=== PATIENT | male | born 1950 | race Caucasian/White ===

== ENCOUNTER 2017-02-09 08:19 | Inpatient (IN) ==
[2017-02-03 18:01] LABS: Basophils # (Auto) 0.1 K/mcL (0.0-0.3); Basophils % (Auto) 0.9 % (0.0-2.0); Eosinophils # (Auto) 0.5 K/mcL (0.0-0.7); Eosinophils % (Auto) 6.6 % (0.0-7.0); Granulocytes % (Auto) 41.4 % (38.0-78.0); Lymphocytes # (Auto) 3.2 K/mcL (1.5-4.8); Lymphocytes % (Auto) 40.1 % (15.5-49.0); Mean Cell Volume 93.9 fL (80.0-100.0); Mean Corpuscular HGB Conc 34.2 g/dL (31.0-36.0); Mean Corpuscular Hemoglobin 32.1 pg (26.0-34.0); Monocytes # (Auto) 0.9 K/mcL (0.1-0.9); Platelet Count 334 K/mcL (140-440); RBC 4.64 M/mcL (4.50-5.90); Red Cell Distribution Width 13.9 % (11.5-14.5)
[2017-02-03 18:16] LABS: Blood Urea Nitrogen 21 mg/dl (8-23)
[2017-02-03 19:02] LABS: Appearance,Urine CLEAR; Bilirubin,Urine NEG (NEG); Color,Urine YELLOW; Glucose,Urine (UA) NEGATIVE (NEG); Leukocyte Esterase,Urine NEG /uL (NEG); Nitrate,Urine NEG (NEG); Protein,Urine NEG (NEG); Urine Blood NEG mg/dL (<0.03); Urobilinogen,Urine NEG (NEG)
[~2017-02-09 08:19] MED LIST: ACETAMINOPHEN 500 MG TABLET PO SCH; CELECOXIB 200 MG CAPSULE PO SCH; PREGABALIN 75 MG CAPSULE PO SCH; ceFAZolin 1 GM VIAL IV SCH; oxyCODONE 10 MG TAB.ER.12H PO SCH
[2017-02-09] MEDS ORDERED: GENTAMICIN SULFATE 800 MG/20 ML VIAL IR ONE (10:29)
[2017-02-09] MEDS ORDERED: ONDANSETRON 4 MG/2 ML VIAL IV ONE (11:10)
[2017-02-09] MEDS ORDERED: PROPOFOL 200 MG/20 ML VIAL IV ONE (11:10)
[2017-02-09] MEDS ORDERED: ePHEDrine 50 MG/ML AMPUL IV ONE (11:10)
[2017-02-09] MEDS ORDERED: MIDAZOLAM 5 MG/5 ML VIAL IV ONE (11:10)
[2017-02-09] MEDS ORDERED: DEXAMETHASONE 10 MG/ML VIAL IV ONE (11:10)
[2017-02-09] MEDS ORDERED: SUCCINYLCHOLINE 20 MG/ML ML IV ONE (11:10)
[2017-02-09] MEDS ORDERED: PHENYLEPHRINE 10 MG/ML VIAL IV ONE (11:10)
[2017-02-09] MEDS ORDERED: TRANEXAMIC ACID 1,000 MG/10 ML VIAL IV ONE ×2 (11:10→12:27)
[2017-02-09] MEDS ORDERED: LIDOCAINE HCL/PF 100 MG/5 ML SYRINGE IV ONE (11:10)
[2017-02-09] MEDS ORDERED: GLYCOPYRROLATE 0.2 MG/ML VIAL IV ONE (11:10)
[2017-02-09] MEDS ORDERED: BISACODYL 10 MG SUPP.RECT PR PRN (12:27)
[2017-02-09] MEDS ORDERED: BENZOCAINE/MENTHOL 1 LOZENGE PO PRN ×2 (12:27→12:41)
[2017-02-09] MEDS ORDERED: FLEETS ADULT ENEMA PR PRN (12:27)
[2017-02-09] MEDS ORDERED: HYDROmorphone 2 MG/ML SYRINGE IV PRN ×2 (12:27→12:41)
[2017-02-09] MEDS ORDERED: ACETAMINOPHEN 325 MG TABLET PO PRN (12:27)
[2017-02-09] MEDS ORDERED: TEMAZEPAM 15 MG CAPSULE PO PRN (12:27)
[2017-02-09] MEDS ORDERED: ONDANSETRON 4 MG/2 ML VIAL IV PRN ×2 (12:27→12:41)
[2017-02-09] MEDS ORDERED: MAGNESIUM HYDROXIDE 30 ML ORAL.SUSP PO PRN (12:27)
[2017-02-09] MEDS ORDERED: KETOROLAC 15 MG/ML VIAL IV PRN (12:27)
[2017-02-09] MEDS ORDERED: POLYETHYLENE GLYCOL 3350 17 GM PACKET PO PRN (12:27)
--- NOTE | 2017-02-09 12:32 | Brief Operative Note ---
Date of procedure: 02/09/17 Pre-op diagnosis: left hip djd Post-op diagnosis: same Procedure: left total hip replacement Grafts/Implants: Yes Anesthesia: GETA Complications Description: 02/09/17 12:31 none Surgeon: Imer Orellana Supplies Packer: Eric Barreto Estimated blood loss (cc): 20 Specimens Removed/Pathology: none sent Condition: stable Disposition: PACU
[2017-02-09] MEDS ORDERED: PROMETHAZINE 25 MG/ML VIAL IV PRN (12:41)
[2017-02-09] MEDS ORDERED: ePHEDrine 50 MG/ML AMPUL IV PRN (12:41)
[2017-02-09] MEDS ORDERED: FLUMAZENIL 0.1 MG/ML ML IV PRN (12:41)
[2017-02-09] MEDS ORDERED: LACTATED RINGERS 250 ML IV PRN (12:41)
[2017-02-09] MEDS ORDERED: fentaNYL 100 MCG/2 ML VIAL IV PRN (12:41)
[2017-02-09] MEDS ORDERED: METHOCARBAMOL 1,000 MG/10 ML VIAL IV PRN (12:41)
[2017-02-09] MEDS ORDERED: diphenhydrAMINE 50 MG/ML VIAL IV PRN (12:41)
[2017-02-09] MEDS ORDERED: PROMETHAZINE 25 MG/ML VIAL IM PRN (12:41)
[2017-02-09] MEDS ORDERED: IPRATROPIUM/ALBUTEROL 3 ML AMPUL.NEB NEB PRN (12:41)
[2017-02-09] MEDS ORDERED: MEPERIDINE 25 MG/ML SYRINGE IV PRN (12:41)
[2017-02-09] MEDS ORDERED: MEPERIDINE 50 MG/ML SYRINGE IM PRN (12:41)
[2017-02-09] MEDS ORDERED: NALOXONE HCL 0.4 MG/ML VIAL IV PRN (12:41)
[2017-02-09] MEDS ORDERED: LACTATED RINGERS 1,000 ML IV SCH (12:45)
--- NOTE | 2017-02-09 13:18 | XRay Report ---
CLINICAL INFORMATION: Postsurgical follow-up TECHNIQUE: AP pelvis and hips. AP and lateral left hip. COMPARISON: None. FINDINGS: Status post left total hip arthroplasty. Acetabular and femoral head complements are in anatomic positions. There is postsurgical soft tissue and intra-articular gas. IMPRESSION: Status post left total hip arthroplasty. Interpreted and Authenticated by: Brandon Dixon 02/09/17
[2017-02-09] MEDS: 0.45 % SODIUM CHLORIDE 1,000 ML IV SCH (14:47)
[2017-02-09] MEDS: 0.9 % SODIUM CHLORIDE 10 ML SYRINGE IV SCH ×2 (14:48→21:02)
[2017-02-09] MEDS: HYDROcodone/APAP 10/325MG TABLET PO PRN (18:09)
[2017-02-09] MEDS: FERROUS SULFATE 325 MG TABLET PO SCH (18:09)
[2017-02-09] MEDS: ceFAZolin 1 GM VIAL IV SCH (18:54)
[2017-02-09] MEDS ORDERED: VITAMIN D3 1,000 UNIT TABLET PO SCH (21:00)
[2017-02-09] MEDS ORDERED: FISH OIL 1,000 MG CAPSULE PO SCH (21:00)
[2017-02-09] MEDS ORDERED: SENNOSIDES 1 TABLET PO SCH (21:00)
[2017-02-09] MEDS: ASPIRIN 325 MG ENTERIC COATED TABLET PO SCH (21:02)
[2017-02-09] MEDS: DOCUSATE SODIUM 100 MG CAPSULE PO SCH (21:02)
[2017-02-10] MEDS: NIACIN 250 MG CAP.SR.12H PO SCH ×2 (00:21→08:53)
[2017-02-10] MEDS: 0.45 % SODIUM CHLORIDE 1,000 ML IV SCH ×2 (00:22→08:46)
[2017-02-10] MEDS: ceFAZolin 1 GM VIAL IV SCH (02:20)
[2017-02-10] MEDS: HYDROcodone/APAP 10/325MG TABLET PO PRN (04:18)
[2017-02-10] MEDS: 0.9 % SODIUM CHLORIDE 10 ML SYRINGE IV SCH (05:50)
[2017-02-10] MEDS ORDERED: LEVOTHYROXINE 50 MCG TABLET PO SCH (07:30)
--- NOTE | 2017-02-10 07:30 | Orthopedic Progress Note ---
Subjective Patient information: Note initiated : 02/10/17 at 7:29 am Service Date, if different from initiated Date: [] Patient: Brandon Rodriguez 67 y/o M admitted on 02/09/17 for Left Anterior Total Hip Arthroplasty. Chief Complaint: [Pt is stable this morning on post operative day 1 without any significant concerns or complaints. Patients vital signs have remained stable. Patients dressing is dry and exhibits a grossly intact neurovascular and neuromotor exam. Patients 10 point ROS is otherwise negative. ] Objective Vital signs: Vital Signs Temp Pulse Resp BP BP Pulse Ox 02/10/17 07:14 97.3 F 71 16 128/68 95 02/10/17 07:13 95 02/10/17 04:00 97.5 F 76 14 134/74 95 02/10/17 02:00 95 02/10/17 00:00 97.4 F 76 14 111/66 96 02/09/17 22:00 96 02/09/17 20:31 95 02/09/17 20:30 95 02/09/17 20:00 96.4 F L 70 14 110/57 95 02/09/17 18:00 94 02/09/17 16:00 97.9 F 20 117/66 94 02/09/17 15:30 20 116/60 95 02/09/17 14:30 18 103/59 95 02/09/17 14:27 94 02/09/17 14:15 18 103/55 98 02/09/17 14:00 18 99/58 97 02/09/17 13:50 94 02/09/17 13:45 97.8 F 18 106/56 98 02/09/17 13:35 97.7 F 63 12 108/53 94 02/09/17 13:20 67 12 107/54 94 02/09/17 13:11 64 12 105/55 97 02/09/17 12:58 97.1 F 68 16 108/54 98 02/09/17 12:42 97.0 F 64 16 114/67 97 02/09/17 10:00 97.6 F 18 140/92 93 Intake and Output 02/09/17 02/10/17 02/10/17 21:59 05:59 13:59 Intake Total 240 / 240 1408 / 1408 Output Total 700 / 700 Balance 240 / 240 708 / 708 Intake: IV 958 / 958 Sodium Chloride 0.45% 1, 958 / 958 000 ml @ 100 mls/hr IV . Q10H SHAUN Rx#:[id number] Oral 240 / 240 450 / 450 Output: Void Amount 700 / 700 Other: Meal Dinner Percent of Meal Consumed 100% # Voids 1 Weight 211 lb Intake & Output: Intake & Output 02/09/17 02/10/17 02/10/17 21:59 05:59 13:59 Intake Total 240 / 240 1408 / 1408 Output Total 700 / 700 Balance 240 / 240 708 / 708 Weight 211 lb Intake: IV 958 / 958 Sodium Chloride 0.45% 1, 958 / 958 000 ml @ 100 mls/hr IV . Q10H SHAUN Rx#:[id number] Oral 240 / 240 450 / 450 Output: Void Amount 700 / 700 Other: Meal Dinner Percent of Meal Consumed 100% # Voids 1 Incision: Yes healing Incision clean and dry: Yes Dressing: Yes clean Weight bearing status: full Neurological exam IM: Yes motor sensory intact, Yes neurovascular intact Extremities exam IM: Yes Foot pink and warm, Yes neurovascular intact - Labs CBC & BMP: 02/10/17 04:31 02/03/17 16:31 Labs: Orthopedic Labs 02/03/17 16:31 PT 13.9 INR 1.0 APTT 32 02/10/17 02/03/17 04:31 16:31 Hgb 14.9 Hct 36.6 L 43.5 Assessment and Plan (1) Hx of total hip arthroplasty Patient has been educated regarding wound care and dressings, follow up recommendations, and medication use. We will f/u with the patient within 2-3 weeks for wound check. Status: Acute
--- NOTE | 2017-02-10 07:33 | Discharge Summary ---
Ortho Discharge - NEPTALI - Patient Instructions Diet: Regular Diet Activity: activity as tolerated, weight bearing as tolerated Total Hip Protocol: Follow activity instructions as provided by Physical Therapy. Dressing Care: May shower in 2 days Patient Education: Total Hip Replacement (DC) Additional Instructions: Discharge Instructions: Do the exercises at home that physical therapy gave you. [facility] for physical therapy Weight bearing as tolerated. You have Dermabond (a dressing with a mesh-like appearance), leave open to air. You may start showering on post op day #2. The Dermabond dressing can get wet, do not scrub dressing. Pat dry. To avoid constipation while taking any narcotic pain medication, take an over the counter stool softener/laxative. Use your Cryocuff or ice packs as directed, on for 20 minutes at a time throughout the day. This and elevation will help with pain and swelling. Call your physician for fevers above 100.5 or pain not controlled by medication. Your prescriptions are with your discharge information. Some medications were electronically transmitted to your pharmacy of choice. - Problem Maintenance (1) Hx of total hip arthroplasty Status: Acute - Follow Up Plan Follow Up Appointments: Imer Orellana MD [Physician] - Disposition: Home, Self-Care Prognosis: Good Rehab Potential: Good I certify that the patient requires SNF services: No Overall status at discharge: patient is progressing back to baseline - Orders For Discharge Prescriptions: Aspirin [Ecotrin] 325 mg PO BID #60 Docusate Sodium [Colace] 100 mg PO BID #60 capsule HYDROcodone/APAP 10/325MG [Waterflow 10/325Mg] 1 - 2 tab PO Q4HP PRN #75 tablet PRN Reason: Pain
[2017-02-10] MEDS: ASPIRIN 325 MG ENTERIC COATED TABLET PO SCH (08:48)
[2017-02-10] MEDS: FERROUS SULFATE 325 MG TABLET PO SCH (08:49)
[2017-02-10] MEDS: DOCUSATE SODIUM 100 MG CAPSULE PO SCH (08:49)
[2017-02-10] MEDS ORDERED: FENOFIBRATE 43 MG CAPSULE PO SCH (09:00)
[2017-02-10] MEDS ORDERED: SERTRALINE 50 MG TABLET PO SCH (09:00)
[2017-02-10] MEDS ORDERED: amLODIPine 5 MG TABLET PO SCH (09:00)
[2017-02-10] MEDS ORDERED: NON FORMULARY MEDICATION 1 DOSE MISCELL (Aspirin [Aspirin Ec] 81 MG) PO SCH (09:00)
== END 2017-02-10 13:00 | disposition home or self-care (01) | DRG 470 ==
LOC: MEDSUR 08:19
PROVIDERS: ADMIT Orthopaedic Surgery; ATTEND Orthopaedic Surgery